=== PATIENT | female | born 1945 | race Caucasian/White ===

== ENCOUNTER 2016-09-29 10:09 | Emergency (ER) | payer MEDICARE ==
[~2016-09-29] VITALS: Ht 157.5 cm; Wt 52.3 kg
[2016-09-29 10:12] VITALS: BP 150/52; PULSE 78; RESP 18; O2SAT 100
--- NOTE | 2016-09-29 10:39 | ED.REPORT ---
HPI-Chest Pain 40 and Over Date of Service Sep 29, 2016 ED Provider: Sánchez Parry MD Pt is a 71 year old female with a hx of blood clot presenting to the ED complaining of epigastric/substernal pain radiating to her back onset 4 or 5 days ago. Associated symptoms include indigestion, SOB, dizziness, heaviness in her chest, blurry vision in both eyes (about the past week). Denies fever, nausea, vomiting, lightheadedness, cough, bloody stools, headache, difficulty speaking or swallowing. Pt reports that she is under a lot of stress due to her daughter. Denies hx of acid reflux, indigestion, chest pain. 2 years ago she had a blood clot due to a PICC line, but she denies any other hx of blood clots. Nursing Notes Stated Complaint: CARDIAC WORKUP Chief Complaint: Chest Pain Nursing Notes Reviewed: Yes Allergies: Coded Allergies: No Known Allergies (Unverified , 09/29/16) Scheduled Aspirin Chew (Aspirin Chew) 81 Mg Chew 81 MG PO DAILY Omeprazole (Omeprazole) 40 Mg Capsule.dr 40 MG PO DAILY Miscellaneous Medications Multivits-Min/Iron/FA/Lutein (Centrum Silver Women Tablet) 8 Mg Iron-400 Mcg- 300 Mcg Tablet 1 EACH PO General Time Seen by MD: 10:32 Chief Complaint Chest pain Hx Obtained From: Patient Arrived By: Walk-in Sudden in Onset?: No Onset Occurred: 5 days ago Symptom Duration: Since onset Location: : Epigastric: Substernal Quality: Heaviness, Painful Severity: Current: Moderate Severity: Maximum: Moderate Recent Healthcare: No recent doctor visit, No recent hospitalization Similar Sx Previous: No Past Medical History Past Medical History Had blood clot 2 years ago when she had a PICC line inserted but denies any other hx Past Surgical History denies Smoking History Current Every Day Smoker Social History Alcohol Use: Denies alcohol use Drug Use: Denies drug use Ambulatory Status Independent Review of Systems Reports indigestion, chest heaviness. Denies difficulty swallowing. Constitutional: Denies: Fever Respiratory: Reports: Shortness of breath, Denies: Non-productive cough Cardiovascular: Reports: Chest pain (Substernal) GI: Reports: Abdominal pain (Epigasctric), Denies: Bloody/tarry stool, Nausea, Vomiting Neurologic: Reports: Dizziness, Denies: Headache, Lightheaded, Unable to speak Complete sys rev & neg: except as marked. Eyes: Reports: Blurred bilateral Physical Exam Initial Vital Signs Vital Signs (First) Date Time Temp Pulse Resp B/P Pulse Ox O2 Delivery O2 Flow Rate FiO2 09/29/16 10:12 36.5 78 18 150/52 100 Room Air Initial VS: Reviewed Head / Eyes: Atraumatic, Normocephalic, PERRL ENT: Mucous membranes moist, Conjunctiva normal, No scleral icterus Extremities: Vascular intact, Neuro intact, No swelling, No tenderness Skin: Warm, Dry, No cyanosis Psychiatric: Mood/affect normal, Behavior normal, Normal thought content General/Constitutional: Awake, Alert, No acute distress Respiratory / Chest: Atraumatic, Breath sounds NL, Breath sounds = bilat, No respiratory distress Cardiovascular: Heart rate NL, Regular rhythm, Heart sounds NL, No murmurs Abdomen: Atraumatic, Soft, No guarding, No rebound Mild epigastric tenderness. Lower Extremity / Pelvis / MS: No deformity, Neurologic intact, Vascular intact , No edema Neurologic: Oriented X3, Speech NL, No motor deficits, No sensory deficits, CN II - XII intact Interpretation & Diagnostics Lab Results Interpretation Result Diagram: 09/29/16 1040 09/29/16 1040 Test 09/29/16 10:40 09/29/16 10:48 White Blood Count 6.5th/mm3 (3.8-10.1) Red Blood Count 3.98mil/mm3 (3.90-5.20) Hemoglobin 12.3g/dL (12.0-15.6) Hematocrit 37.1% (35.0-46.0) Mean Corpuscular Volume 93.2fL (81-100) Mean Corpuscular Hemoglobin 30.9pg (27.0-35.0) Mean Corpuscular Hemoglobin Concent 33.2% (32.0-37.0) Red Cell Distribution Width 13.7% (12.3-15.4) Platelet Count 228bil/L (150-400) Neutrophils (%) (Auto) 56.5% (40-74) Lymphocytes (%) (Auto) 31.6% (14-46) Monocytes (%) (Auto) 9.4% (4-12) Eosinophils (%) (Auto) 1.9% (0-5) Basophils (%) (Auto) 0.6% (0-3) Sodium Level 138mEq/L (134-144) Potassium Level 3.9mEq/L (3.5-5.2) Chloride Level 100mEq/L (97-108) Carbon Dioxide Level 22mmol/L (18-29) Blood Urea Nitrogen 11mg/dL (8-27) Creatinine 0.80mg/dL (0.57-1.00) Estimat Glomerular Filtration Rate 101mL/min (>59) Glucose Level 96mg/dL (60-99) Calcium Level 9.4mg/dL (8.5-10.1) Magnesium Level 2.0mg/dL (1.6-2.6) Total Bilirubin 0.3mg/dL (0.0-1.2) Aspartate Amino Transf (AST/SGOT) 19U/L (0-50) Alanine Aminotransferase (ALT/SGPT) 12U/L (0-32) Alkaline Phosphatase 69U/L (25-165) Troponin T 0.010ug/L (0.0-0.011) Total Protein 7.4g/dL (6.4-8.4) Albumin 4.4g/dL (3.4-5.0) Hold Gomez Top Tube Received (Received) D-Dimer < 0.50mg/L FEU (<0.50) Lipase 35U/L (13-60) ECG Interpretation ECG Interpretation: No ST elevations. T wave inversion in v1. No ST-T changes. Time: 10:28 Interpreted by: ED physician Normal ECG Interpretation: Normal rate (62) X-Ray Chest Interpretation Chest Xray Interpretation: IMPRESSION: No acute cardiopulmonary disease. Dictated by: Gunner Eubanks M.D. on 09/29/2016 at 11:17 View: Portable, 1 view Interpretation / Wet Read by: Interpret - Radiologist Re-Eval/Medical Decision Med Decision/Clinical Course 71-year-old female presenting with epigastric pain times several days. Vital signs stable. No EKG changes. Troponins are negative. D-dimer and chest x-ray negative. Pain improved with GI cocktail. Likely gastritis. We will start PPI Tums as needed. Return precautions given. Time of Eval: 12:16 Patient Status: Condition improved Re-Evaluation/Progress Note: Discussed x ray and lab results and plan for discharge. Pt understands and agrees with plan. Counseled Regarding: Diagnosis, Lab results, Need for follow-up, When/why to return to ED Discharge & Departure Primary Impression: Gastritis Gastritis type: unspecified gastritis Chronicity: unspecified Gastritis bleeding: without bleeding Qualified Code: K29.70 - Gastritis, unspecified, without bleeding Disposition: Home Discharge Condition All VS Reviewed: Yes Condition: Improved Patient Instructions: Diet for Stomach Ulcers and Gastritis (ED), Gastritis (ED ) Additional Instructions: Your labs, EKG and x ray were all reassuring, They do not show any signs of heart attack or blood clot. Take Omeprazole as prescribed. You will likely not feel the effects of the medication for about a month, but in the meantime continue taking TUMS. Take Tylenol as needed for your back pain. Return to the ER if you develop any new or worsening symptoms such as coughing up blood, vomiting, numbness, rectal bleeding, or shortness of breath. Keep your appointment with your doctor today. Referrals: Amy Canseco MD (Family) Scribe Attestation Portions of this note were transcribed by Chantal Morin. I, Dr. Parry personally performed the history, physical exam and medical decision-making; I reviewed and confirmed the accuracy of the information in the transcribed note. Signed by: Windy Teran, 09/29/2016. copies to: Amy Canseco MD, Ben M MD Sep 29, 2016 10:39 CHANTAL MORIN Sep 29, 2016 10:47
[2016-09-29] MEDS ORDERED: LidocaineVisc 2%:Antacid 1:1 10 mL Syringe PO ONE (10:55)
[2016-09-29 11:03] LABS: BASOPHILS % (AUTO) 0.6 % (0-3); EOSINOPHILS % (AUTO) 1.9 % (0-5); MONOCYTES % (AUTO) 9.4 % (4-12); Mean Corpuscular Hemoglobin 30.9 pg (27.0-35.0); Mean Corpuscular Volume 93.2 fL (81-100); NEUTROPHILS % (AUTO) 56.5 % (40-74); Platelet Count 228 bil/L (150-400)
--- NOTE | 2016-09-29 11:19 | DRSVH ---
PROCEDURE: X-RAY CHEST ONE VIEW, PORTABLE ([id number]) INDICATIONS: 71 year-old female with chest pain. TECHNIQUE: One view of the chest was acquired. COMPARISON: None. FINDINGS: Surgical changes and devices: None. Lungs and pleura: No pleural effusions or pneumothorax. Lungs are clear. Mediastinum: Mediastinal contours appear normal. Heart size is normal given AP technique. Bones and chest wall: No suspicious bony lesions. Overlying soft tissues appear unremarkable. IMPRESSION: No acute cardiopulmonary disease. Dictated by: Gunner Eubanks M.D. on 09/29/2016 at 11:17 Approved by: Gunner Eubanks M.D. on 09/29/2016 at 11:18
[2016-09-29 11:46] VITALS: BP 123/70; PULSE 65; RESP 21; O2SAT 100
[2016-09-29 11:46] LABS: TROPONIN T 0.01 ug/L (0.0-0.011)
[2016-09-29] MEDS ORDERED: MULT-1065 PO (11:48)
[2016-09-29] MEDS ORDERED: ASPI81TA3 PO (11:48)
[2016-09-29] MEDS ORDERED: OMEP40CA36 PO (12:27)
[2016-09-29 12:55] VITALS: BP 120/62; PULSE 77; RESP 21; O2SAT 98
[2016-09-29 12:56] VITALS: BP 120/62; PULSE 77; RESP 21; O2SAT 98
== END 2016-09-29 12:57 | disposition home or self-care (01) ==
LOC: SED 10:09
DX: K29.70 Gastritis, unspecified, without bleeding (principal); F17.200 Nicotine dependence, unspecified, uncomplicated; Z79.82 Long term (current) use of aspirin
CPT/HCPCS: 36415; 71010; 80053; 83690; 83735; 84484; 85025; 85378; 93005; 96374; 99285; J2270